=== PATIENT | male | born 1975 | race Two or more races ===

== ENCOUNTER 2024-09-18 17:08 | Emergency (ER) | payer SELFPAY ==
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
[2024-09-18] MEDS: SODIUM CHLORIDE 0.9% 1,000 ML IVB ONE (18:46)
[2024-09-18] MEDS: KETOROLAC TROMETH 30 MG/ML 1ML VIAL IV ONE (18:57)
[2024-09-18 19:29] VITALS: BP 112/78; PULSE 102; RESP 18; TEMP 98.8; O2SAT 95
[2024-09-18] MEDS: ACETAMINOPHEN 325 MG TAB PO ONE (20:32)
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
== END 2024-09-18 21:21 | disposition left against medical advice (07) ==
LOC: ER 17:08 → EDBD 17:08 → ER 21:21
DX: F10.129 Alcohol abuse with intoxication, unspecified (principal); S01.81XA Laceration without foreign body of other part of head, initial encounter; S39.012A Strain of muscle, fascia and tendon of lower back, initial encounter; E78.5 Hyperlipidemia, unspecified; F17.210 Nicotine dependence, cigarettes, uncomplicated; V47.5XXA Car driver injured in collision with fixed or stationary object in traffic accident, initial encounter; Y93.I9 Activity, other involving external motion; Y92.488 Other paved roadways as the place of occurrence of the external cause; Y99.8 Other external cause status
CPT/HCPCS: 12011; 36415; 70450; 72131; 80320; 82947; 96361; 96374; 99285; J1885; J7030